=== PATIENT | female | born 1980 | race African-American/Black ===

== ENCOUNTER 2019-10-11 20:45 | Emergency (ER) | payer MEDICAID ==
[~2019-10-11] VITALS: Ht 170.2 cm; Wt 70.0 kg
[2019-10-11 21:44] VITALS: BP 122/64
[2019-10-11] MEDS ORDERED: ACETAMINOPHEN WITH CODEINE 300/30MG TABLET PO ONE (21:45)
[2019-10-11] MEDS ORDERED: LIDOCAINE HCL 1% 20ML VIAL (Pyxis) INJ INFIL ONE (22:00)
== END 2019-10-11 23:14 | disposition home or self-care (01) ==
LOC: ER 20:45
DX: S92.421A Displaced fracture of distal phalanx of right great toe, initial encounter for closed fracture (principal); W22.8XXA Striking against or struck by other objects, initial encounter; Y93.89 Activity, other specified; Y92.89 Other specified places as the place of occurrence of the external cause
CPT/HCPCS: 28495; 73660; 99284; J3490